=== PATIENT | female | born 1950 ===

== ENCOUNTER 2017-12-11 15:46 | Emergency (ER) | payer SELFPAY ==
[2017-12-11 16:04] VITALS: BP 149/69; PULSE 82; RESP 20; TEMP 99.1; O2SAT 99
--- NOTE | 2017-12-11 17:21 | C.PDOC ---
History Of Present Illness 67 year old female patient presents to the ER with c/o right shoulder pain for x3 days after she tripped, fell and landed on her right shoulder. Pain is aggravated with movement. Patient denies LOC, head trauma, change in sensation, weakness and numbness. Time Seen by Provider: 12/11/17 16:08 Chief Complaint (Nursing): Upper Extremity Problem/Injury History Per: Narcotics Detective (daughter) History/Exam Limitations: no limitations Onset/Duration Of Symptoms: Days (x3 ) Current Symptoms Are (Timing): Still Present Past Medical History Reviewed: Historical Data, Nursing Documentation, Vital Signs Vital Signs: Last Vital Signs Temp 99.1 F 12/11/17 16:01 Pulse 82 12/11/17 16:01 Resp 20 12/11/17 16:01 BP 149/69 12/11/17 16:01 Pulse Ox 99 12/11/17 18:59 - Medical History PMH: Alzheimer's Disease, HTN, Hypercholesterolemia Family History: States: No Known Family Hx - Social History Hx Alcohol Use: No Hx Substance Use: No - Immunization History Hx Tetanus Toxoid Vaccination: Yes Hx Influenza Vaccination: Yes Hx Pneumococcal Vaccination: Yes Review Of Systems Constitutional: Negative for: Other (LOC; head trauma ) Musculoskeletal: Positive for: Shoulder Pain (right ) Neurological: Negative for: Weakness, Numbness, Other (change in sensation ) Physical Exam - Physical Exam Appears: Non-toxic, No Acute Distress Skin: Normal Color, Warm, Dry Head: Atraumatic, Normacephalic Eye(s): bilateral: Normal Inspection, EOMI Nose: Normal Oral Mucosa: Moist Neck: Normal ROM, Supple Chest: Symmetrical Respiratory: No Accessory Muscle Use, Other (speaking in full sentences) Extremity: No Normal ROM (decreased ROM secondary to pain ), Tenderness ( diffuse tenderness on right shoulder ), Capillary Refill (<2 sec), No Deformity , No Swelling Pulses: Left Radial: Normal, Right Radial: Normal Neurological/Psych: Normal Sensation, No Other (focal deficit ) ED Course And Treatment O2 Sat by Pulse Oximetry: 99 (RA) Pulse Ox Interpretation: Normal - Other Rad R shoulder X-Ray: Read By Radiologist Interpretation: Accession No. : [id number]. Patient Name / ID : KENDRA DUVALL / [id number]. Exam Date : 12/11/2017 16:32:47 ( Approved ). Study Comment : Sex / Age : F / 67Y. Creator : Sarina Hampton. Dictator : Caleb Huerta MD. Regulatory Compliance Manager : Real Estate Subagent : Caleb Huerta MD. Approver2 : Report Date : 12/11/2017 16:39:34. My Comment : . Date of service: 12/11/2017. PROCEDURE: Radiographs of the Right Shoulder. HISTORY: trauma. COMPARISON: No prior. FINDINGS: BONES: No acute fracture. JOINTS: Glenohumeral and acromioclavicular joint degenerative changes. SOFT TISSUES: Normal. OTHER FINDINGS: None. IMPRESSION: No demonstrated fracture dislocation. Right shoulder degenerative changes. Progress Note: Plans: -- XR right shoulder. Reassess: Patient offered pain medication and sling but declines both. Patient was instructed to f/u with orthropedics for further evaluation in 1-2 days. Disposition - Disposition Referrals: Taz Yepez III, MD [Staff Provider] - Disposition: HOME/ ROUTINE Disposition Time: 17:19 Condition: STABLE Additional Instructions: Follow up with your bone doctor in 1-2 days. Return to ER if symptoms persist or worsen. Prescriptions: Ibuprofen [Motrin] 600 mg PO Q6 PRN #20 tab PRN Reason: Pain, Mild (1-3) Instructions: Shoulder Sprain Forms: [employer] (Welsh) Print Language: BAHRAINI - Clinical Impression Clinical Impression: Shoulder contusion - PA / DIRECTOR OF BUSINESS CONTINUITY / Resident Statement / has reviewed & agrees with the documentation as recorded. - Scribe Statement The provider has reviewed the documentation as recorded by the Pari Zamarripa Do All medical record entries made by the Scribe were at my direction and personally dictated by me. I have reviewed the chart and agree that the record accurately reflects my personal performance of the history, physical exam, medical decision making, and the department course for this patient. I have also personally directed, reviewed, and agree with the discharge instructions and disposition.
--- NOTE | 2017-12-11 17:26 | RAD ---
Date of service: 12/11/2017 PROCEDURE: Radiographs of the Right Shoulder HISTORY: trauma COMPARISON: No prior. FINDINGS: BONES: No acute fracture. JOINTS: Glenohumeral and acromioclavicular joint degenerative changes. SOFT TISSUES: Normal. OTHER FINDINGS: None. IMPRESSION: No demonstrated fracture dislocation. Right shoulder degenerative changes.
== END 2017-12-11 17:38 | disposition home or self-care (01) ==
LOC: C.ER 15:46
DX: S40.011A Contusion of right shoulder, initial encounter (principal); W01.0XXA Fall on same level from slipping, tripping and stumbling without subsequent striking against object, initial encounter